=== PATIENT | female | born 1960 | race Caucasian/White ===

== ENCOUNTER 2021-09-10 14:47 | Inpatient (IN) | payer OTHER ==
[~2021-09-10] VITALS: Ht 167.6 cm; Wt 79.4 kg
[~2021-09-10 14:47] MED LIST: ACYCLOVIR400 MG PO
[2021-09-10] MEDS ORDERED: ABILIFY15 MG PO (17:30)
[2021-09-10] MEDS ORDERED: TYLENOL325 M2 PO (17:31)
[2021-09-10] MEDS ORDERED: MAALOX MAXIMUM355 ML PO (17:35)
[2021-09-10] MEDS ORDERED: COGENTIN0.5 MG PO (17:38)
[2021-09-10] MEDS ORDERED: BUPROPION SR100 MG PO (17:40)
[2021-09-10] MEDS ORDERED: DEPAKENE250 M1 PO (17:41)
[2021-09-10] MEDS ORDERED: [UNRECOGNIZED DRUG - OTHER] PO (17:44)
[2021-09-10] MEDS ORDERED: MIRALAX17 GM PO (17:46)
[2021-09-10] MEDS ORDERED: ANTI-DIARRHEAL2 MG PO (17:47)
[2021-09-10] MEDS ORDERED: MELATONIN5 M1 PO (17:48)
[2021-09-10] MEDS ORDERED: METFORMIN HYDR500 MG PO (17:49)
[2021-09-10] MEDS ORDERED: METOPROLOL SUCC50 M1 PO (17:51)
[2021-09-10] MEDS ORDERED: MILK OF MA400 MG/51 PO (17:51)
[2021-09-10] MEDS ORDERED: JANUVIA100 MG PO (17:53)
[2021-09-10] MEDS ORDERED: SODIUM CHLORIDE1 GM PO (17:54)
[2021-09-10] MEDS ORDERED: THIAMINE HCL100 MG PO (17:55)
[2021-09-10] MEDS ORDERED: VITAMIN D250 MCG PO (17:56)
[2021-09-10] MEDS ORDERED: ZOFRAN4 MG PO (17:57)
[2021-09-10 19:07] VITALS: BP 128/70
[2021-09-10 20:00] VITALS: BP 128/70
[2021-09-10] MEDS ORDERED: LEVOFLOXACIN500 MG PO (20:07)
[2021-09-11 07:20] LABS: BASO # 0.1 10*3/uL (0.0-0.1); BASO % 1.1 % (0.0-1.0); EOS # 0.2 10*3/uL (0.0-0.4); EOS % 1.3 % (1.0-4.0); HEMATOCRIT 43.8 % (37.0-47.0); LYMPH # 3.2 10*3/uL (1.3-4.4); LYMPH % 25.7 % (27.0-41.0); MEAN CELL VOLUME 91.1 fl (81.0-99.0); MEAN CORPUSCULAR HGB 29.9 pg (27.0-31.0); MEAN CORPUSCULAR HGB CONC 32.9 g/dl (33.0-37.0); MEAN PLATELET VOLUME 9.1 fl (9.6-12.3); MONO # 1.1 10*3/uL (0.1-1.0); MONO % 8.6 % (3.0-9.0); NEUT # 7.7 10*3/uL (2.3-7.9); NEUT % 62.6 % (47.0-73.0); PLATELET COUNT AUTOMATED 725 10*3/uL (130-400); RED BLOOD COUNT 4.81 10*6/uL (4.10-5.10); RED CELL DISTRI WIDTH 13.7 % (0-14.5); WHITE BLOOD COUNT 12.2 10*3/uL (4.8-10.8)
[2021-09-11 07:39] LABS: ALBUMIN 3.5 gm/dl (3.1-4.5); ALKALINE PHOSPHATASE 88 U/L (45-117); BUN 10 mg/dl (7-24); CHLORIDE 98 mmol/L (98-107); CHOLESTEROL 151 mg/dL (<200); CREATININE 0.76 mg/dL (0.55-1.02); LDL CHOLESTEROL 67 mg/dL (9-159); POTASSIUM 3.7 mmol/L (3.5-5.1); SGOT/AST 16 IU/L (3-35); SGPT/ALT 33 U/L (12-78); SODIUM 133 mmol/L (136-145); TOTAL PROTEIN 8.7 gm/dL (6.4-8.2); TRIGLYCERIDES 147 mg/dl (<150); VALPROIC ACID (DEPAKENE) 54.5 ug/ml (50-100)
[2021-09-11 08:12] LABS: VITAMIN D, 25-HYDROXY 34.1 ng/mL (30-100)
[2021-09-11 08:25] VITALS: BP 127/82
[2021-09-11 08:36] LABS: BILIRUBIN Negative (Negative); BLOOD Trace-Lysed (Negative); CLARITY Cloudy (Clear); COLOR Yellow (Yellow); GLUCOSE Negative (Negative); KETONE Negative (Negative); LEUKO ESTERASE 3+ (Negative); NITRITE Positive (Negative); UROBILINOGEN 0.2 E.U./dl (0.0-1.0)
[2021-09-11 10:19] LABS: WBC TNTC wbc/hpf (0-5)
[2021-09-11 10:22] LABS: BACTERIA 4+; RBC 16-20 rbc/hpf (0-2)
[2021-09-11 20:00] VITALS: BP 128/81
[2021-09-12 08:11] VITALS: BP 121/77
[2021-09-12 20:00] VITALS: BP 128/76
[2021-09-13 08:00] VITALS: BP 133/78
[2021-09-13 19:33] VITALS: BP 128/67
[2021-09-14 08:00] VITALS: BP 150/80
[2021-09-14 20:00] VITALS: BP 121/61
[2021-09-15 07:34] VITALS: BP 116/68
[2021-09-15 20:00] VITALS: BP 136/72
[2021-09-16 07:13] LABS: BASO # 0.1 10*3/uL (0.0-0.1); BASO % 0.5 % (0.0-1.0); EOS # 0.2 10*3/uL (0.0-0.4); EOS % 1.1 % (1.0-4.0); HEMATOCRIT 38.1 % (37.0-47.0); LYMPH % 23.1 % (27.0-41.0); MEAN CELL VOLUME 91.8 fl (81.0-99.0); MEAN CORPUSCULAR HGB 29.4 pg (27.0-31.0); MEAN PLATELET VOLUME 9.5 fl (9.6-12.3); MONO # 1.2 10*3/uL (0.1-1.0); MONO % 8.9 % (3.0-9.0); NEUT # 8.6 10*3/uL (2.3-7.9); PLATELET COUNT AUTOMATED 398 10*3/uL (130-400); RED BLOOD COUNT 4.15 10*6/uL (4.10-5.10); RED CELL DISTRI WIDTH 13.8 % (0-14.5); WHITE BLOOD COUNT 13.1 10*3/uL (4.8-10.8)
[2021-09-16 07:27] LABS: ALBUMIN 2.9 gm/dl (3.1-4.5); ALKALINE PHOSPHATASE 79 U/L (45-117); BUN 9 mg/dl (7-24); CHLORIDE 100 mmol/L (98-107); CREATININE 0.72 mg/dL (0.55-1.02); POTASSIUM 3.8 mmol/L (3.5-5.1); SGOT/AST 16 IU/L (3-35); SGPT/ALT 21 U/L (12-78); SODIUM 134 mmol/L (136-145); TOTAL PROTEIN 7.2 gm/dL (6.4-8.2)
[2021-09-16 07:36] LABS: VALPROIC ACID (DEPAKENE) 60.1 ug/ml (50-100)
[2021-09-16 08:32] VITALS: BP 145/80
[2021-09-16 20:00] VITALS: BP 128/63
[2021-09-17 08:00] VITALS: BP 106/55
[2021-09-17 08:33] LABS: BASO # 0.1 10*3/uL (0.0-0.1); BASO % 0.5 % (0.0-1.0); EOS # 0.2 10*3/uL (0.0-0.4); EOS % 1.3 % (1.0-4.0); HEMATOCRIT 40.5 % (37.0-47.0); LYMPH # 3.7 10*3/uL (1.3-4.4); LYMPH % 26.8 % (27.0-41.0); MEAN CELL VOLUME 90.6 fl (81.0-99.0); MEAN CORPUSCULAR HGB 29.8 pg (27.0-31.0); MEAN CORPUSCULAR HGB CONC 32.8 g/dl (33.0-37.0); MEAN PLATELET VOLUME 9.6 fl (9.6-12.3); MONO # 1.3 10*3/uL (0.1-1.0); MONO % 9.2 % (3.0-9.0); NEUT # 8.5 10*3/uL (2.3-7.9); NEUT % 61.9 % (47.0-73.0); PLATELET COUNT AUTOMATED 414 10*3/uL (130-400); RED BLOOD COUNT 4.47 10*6/uL (4.10-5.10); RED CELL DISTRI WIDTH 13.7 % (0-14.5); WHITE BLOOD COUNT 13.8 10*3/uL (4.8-10.8)
[2021-09-17 08:47] LABS: ALBUMIN 3.2 gm/dl (3.1-4.5); ALKALINE PHOSPHATASE 86 U/L (45-117); BUN 8 mg/dl (7-24); CHLORIDE 101 mmol/L (98-107); CREATININE 0.76 mg/dL (0.55-1.02); SGOT/AST 15 IU/L (3-35); SGPT/ALT 21 U/L (12-78); SODIUM 135 mmol/L (136-145); TOTAL PROTEIN 7.7 gm/dL (6.4-8.2)
[2021-09-17] MEDS ORDERED: DEPAKENE250 M2 PO (08:47)
[2021-09-17] MEDS ORDERED: FLUPHENAZIN5 MG/1 ML PO (08:48)
[2021-09-17] MEDS ORDERED: REMERON15 M2 PO (08:49)
[2021-09-17] MEDS ORDERED: INVEGA6 MG PO (08:49)
[2021-09-17] MEDS ORDERED: VALPROIC ACI50 MG/ML PO (08:52)
[2021-09-18] MEDS ORDERED: VANCOMYCIN HCL125 MG PO (11:48)
[2021-09-18] MEDS ORDERED: METOPROLOL SUCC50 M1 PO (11:48)
[2021-09-18] MEDS ORDERED: DEPAKENE S250 MG/5 M PO (11:48)
[2021-09-18] MEDS ORDERED: LEVOFLOXACIN500 MG PO (11:48)
== END 2021-09-17 09:45 | disposition short-term general hospital (02) | DRG 750 ==
LOC: 3N 14:47
PROVIDERS: Counselor Professional; Internal Medicine; Registered Nurse; ADMIT Psychiatry & Neurology Psychiatry; ATTEND Psychiatry & Neurology Psychiatry
DX: F25.1 Schizoaffective disorder, depressive type (principal); N39.0 Urinary tract infection, site not specified; A41.9 Sepsis, unspecified organism; E87.1 Hypo-osmolality and hyponatremia; F22 Delusional disorders; J18.9 Pneumonia, unspecified organism; F41.9 Anxiety disorder, unspecified; R56.9 Unspecified convulsions; I10 Essential (primary) hypertension; E11.65 Type 2 diabetes mellitus with hyperglycemia; Z90.49 Acquired absence of other specified parts of digestive tract; Z87.891 Personal history of nicotine dependence; Z88.0 Allergy status to penicillin; Z88.5 Allergy status to narcotic agent; Z88.1 Allergy status to other antibiotic agents; Z79.1 Long term (current) use of non-steroidal anti-inflammatories (NSAID); Z79.899 Other long term (current) drug therapy; Z20.822 Contact with and (suspected) exposure to COVID-19

== ENCOUNTER 2021-09-17 09:58 | Inpatient (IN) | payer OTHER ==
[~2021-09-17] VITALS: Ht 160 cm; Wt 74.8 kg
[~2021-09-17 09:58] MED LIST changes: +ABILIFY15 MG PO; +ANTI-DIARRHEAL2 MG PO; +BUPROPION SR100 MG PO; +COGENTIN0.5 MG PO; +DEPAKENE250 M1 PO; +DEPAKENE250 M2 PO; +FLUPHENAZIN5 MG/1 ML PO; +INVEGA6 MG PO; +JANUVIA100 MG PO; +LEVOFLOXACIN500 MG PO; +MAALOX MAXIMUM355 ML PO; +MELATONIN5 M1 PO; +METFORMIN HYDR500 MG PO; +METOPROLOL SUCC50 M1 PO; +MILK OF MA400 MG/51 PO; +MIRALAX17 GM PO; +REMERON15 M2 PO; +SODIUM CHLORIDE1 GM PO; +THIAMINE HCL100 MG PO; +TYLENOL325 M2 PO; +VALPROIC ACI50 MG/ML PO; +VITAMIN D250 MCG PO; +ZOFRAN4 MG PO; +[UNRECOGNIZED DRUG - OTHER] PO
[2021-09-17 10:00] VITALS: BP 126/69
[2021-09-17 12:00] VITALS: BP 119/79
[2021-09-17 16:00] VITALS: BP 119/82
[2021-09-17 17:51] LABS: BASO # 0.1 10*3/uL (0.0-0.1); BASO % 0.6 % (0.0-1.0); EOS # 0.2 10*3/uL (0.0-0.4); EOS % 1.7 % (1.0-4.0); HEMATOCRIT 37.7 % (37.0-47.0); LYMPH # 2.4 10*3/uL (1.3-4.4); LYMPH % 22.9 % (27.0-41.0); MEAN CELL VOLUME 89.5 fl (81.0-99.0); MEAN CORPUSCULAR HGB 29.9 pg (27.0-31.0); MEAN CORPUSCULAR HGB CONC 33.4 g/dl (33.0-37.0); MEAN PLATELET VOLUME 9.7 fl (9.6-12.3); MONO % 9.3 % (3.0-9.0); NEUT # 6.9 10*3/uL (2.3-7.9); NEUT % 65.1 % (47.0-73.0); PLATELET COUNT AUTOMATED 384 10*3/uL (130-400); RED BLOOD COUNT 4.21 10*6/uL (4.10-5.10); RED CELL DISTRI WIDTH 13.9 % (0-14.5); WHITE BLOOD COUNT 10.7 10*3/uL (4.8-10.8)
[2021-09-17 18:10] LABS: ALBUMIN 3.1 gm/dl (3.1-4.5); ALKALINE PHOSPHATASE 81 U/L (45-117); BUN 13 mg/dl (7-24); CHLORIDE 98 mmol/L (98-107); POTASSIUM 3.9 mmol/L (3.5-5.1); SGOT/AST 12 IU/L (3-35); SGPT/ALT 21 U/L (12-78); SODIUM 132 mmol/L (136-145); TOTAL PROTEIN 7.6 gm/dL (6.4-8.2)
[2021-09-17 20:00] VITALS: BP 152/80
[2021-09-18] VITALS: BP 137/66
[2021-09-18 06:33] LABS: BASO # 0.1 10*3/uL (0.0-0.1); BASO % 0.8 % (0.0-1.0); EOS # 0.2 10*3/uL (0.0-0.4); EOS % 1.8 % (1.0-4.0); LYMPH # 2.6 10*3/uL (1.3-4.4); LYMPH % 26.9 % (27.0-41.0); MEAN CELL VOLUME 91.8 fl (81.0-99.0); MEAN CORPUSCULAR HGB 29.7 pg (27.0-31.0); MEAN CORPUSCULAR HGB CONC 32.4 g/dl (33.0-37.0); MONO # 0.9 10*3/uL (0.1-1.0); MONO % 9.1 % (3.0-9.0); NEUT % 61.1 % (47.0-73.0); PLATELET COUNT AUTOMATED 386 10*3/uL (130-400); RED BLOOD COUNT 4.14 10*6/uL (4.10-5.10); RED CELL DISTRI WIDTH 13.7 % (0-14.5); WHITE BLOOD COUNT 9.8 10*3/uL (4.8-10.8)
[2021-09-18 06:35] LABS: ALBUMIN 2.8 gm/dl (3.1-4.5); BUN 11 mg/dl (7-24); CHLORIDE 103 mmol/L (98-107); POTASSIUM 4.4 mmol/L (3.5-5.1); SODIUM 137 mmol/L (136-145)
[2021-09-18 06:47] LABS: ALKALINE PHOSPHATASE 77 U/L (45-117); CREATININE 0.53 mg/dL (0.55-1.02); FREE T4 0.93 ng/dl (0.76-1.46); SGOT/AST 11 IU/L (3-35); SGPT/ALT 19 U/L (12-78); TOTAL PROTEIN 7.1 gm/dL (6.4-8.2)
[2021-09-18 07:57] VITALS: BP 128/64
[2021-09-18] MEDS ORDERED: METOPROLOL SUCC50 M1 PO (11:48)
[2021-09-18] MEDS ORDERED: LEVOFLOXACIN500 MG PO (11:48)
[2021-09-18] MEDS ORDERED: DEPAKENE S250 MG/5 M PO (11:48)
[2021-09-18] MEDS ORDERED: VANCOMYCIN HCL125 MG PO (11:48)
[2021-09-18 12:00] VITALS: BP 132/82
== END 2021-09-18 17:40 | DRG 205 ==
LOC: 5E 09:58
PROVIDERS: Internal Medicine; ADMIT Internal Medicine; ATTEND Internal Medicine
DX: I42.2 Other hypertrophic cardiomyopathy (principal); N39.0 Urinary tract infection, site not specified; E87.1 Hypo-osmolality and hyponatremia; F25.9 Schizoaffective disorder, unspecified; F32.9 Major depressive disorder, single episode, unspecified; E44.0 Moderate protein-calorie malnutrition; Z20.822 Contact with and (suspected) exposure to COVID-19; E11.65 Type 2 diabetes mellitus with hyperglycemia; E83.39 Other disorders of phosphorus metabolism; E83.41 Hypermagnesemia; R56.9 Unspecified convulsions; A04.72 Enterocolitis due to Clostridium difficile, not specified as recurrent; I34.0 Nonrheumatic mitral (valve) insufficiency; Z90.49 Acquired absence of other specified parts of digestive tract; Z79.1 Long term (current) use of non-steroidal anti-inflammatories (NSAID); Z79.899 Other long term (current) drug therapy; Z88.0 Allergy status to penicillin; Z88.5 Allergy status to narcotic agent; Z88.8 Allergy status to other drugs, medicaments and biological substances; Z87.891 Personal history of nicotine dependence; Z79.82 Long term (current) use of aspirin; Z68.29 Body mass index [BMI] 29.0-29.9, adult